=== PATIENT | female | born 1970 | race Asian ===

== ENCOUNTER 2021-03-31 10:00 | Outpatient (CLI) | payer OTHER ==
[~2021-03-31 10:00] MED LIST: ADIPEX PO; AMOX500C85 PO; CELEXA10 MG PO; CLINDAMYCIN150 MG PO; HYDR-2748 PO; HYDR25TA60 PO; PERIDEX0.12 % MT; [UNRECOGNIZED DRUG - OTHER] PO
== END 2021-03-31 20:04 | disposition home or self-care (01) ==
LOC: US 10:00
PROVIDERS: ATTEND Nurse Practitioner Family
DX: N94.4 Primary dysmenorrhea (principal); R39.15 Urgency of urination